=== PATIENT | female | born 1995 | race Caucasian/White ===

== ENCOUNTER → 2018-02-18 13:33 | Outpatient (CLI) | payer OTHER, SELFPAY | PROVIDERS: PCP Family Medicine; Visit Provider Physician Assistant | DX: J02.9 Acute pharyngitis, unspecified (principal) | CPT/HCPCS: 87070; 87077; 87147 ==

== ENCOUNTER → 2020-10-27 08:19 | Outpatient (CLI) | payer OTHER, SELFPAY ==
[2020-10-27] MEDS: COVID-19 VACC, Ad26(JANSSEN)/PF 0.5 ML IM (08:22)
== END ==
PROVIDERS: PCP Registered Nurse Diabetes Educator; Visit Provider Internal Medicine
DX: Z23 Encounter for immunization (principal)
CPT/HCPCS: 0031A; 91303

== ENCOUNTER → 2022-10-30 13:40 | Outpatient (CLI) | payer OTHER, SELFPAY ==
[2022-10-30 13:56] LABS: Hematocrit 37.5 % (36-46); Hemoglobin 12.6 g/dL (12.0-16.0); Mean Corpuscular HGB Conc 33.5 % (30-36); Mean Corpuscular Hemoglobin 26.6 PG (26-34); Mean Corpuscular Volume 79.2 fL (80-100); Platelet Count 349 X10^3/uL (150-400); Red Blood Cell Count 4.73 X10^6/uL (4.0-5.2); Red Cell Distribution Width 13.5 % (11.6-14.8); White Blood Cell Count 12.3 X10^3/uL (4.5-11.0)
[2022-10-30 14:42] LABS: TSH w/ Reflex to FT4 1.26 uIU/mL (0.47-4.68)
== END ==
PROVIDERS: PCP Registered Nurse Diabetes Educator; Referring Provider Registered Nurse Diabetes Educator; Visit Provider Registered Nurse Diabetes Educator
DX: F32.A Depression, unspecified (principal); F41.9 Anxiety disorder, unspecified; R53.83 Other fatigue
CPT/HCPCS: 36415; 84443; 85027

== ENCOUNTER → 2023-11-10 12:38 | Outpatient (CLI) | payer OTHER, SELFPAY ==
[2023-11-10 14:06] LABS: Hematocrit 37.9 % (36-46); Hemoglobin 12.6 g/dL (12.0-16.0); Mean Corpuscular HGB Conc 33.2 % (30-36); Mean Corpuscular Hemoglobin 26.3 PG (26-34); Mean Corpuscular Volume 79.3 fL (80-100); Platelet Count 340 X10^3/uL (150-400); Red Blood Cell Count 4.78 X10^6/uL (4.0-5.2); Red Cell Distribution Width 13.8 % (11.6-14.8); White Blood Cell Count 9.6 X10^3/uL (4.5-11.0)
[2023-11-10 14:26] LABS: Alanine Aminotransferase 15 IU/L (<35); Albumin 4.5 g/dL (3.5-5.0); Albumin Globulin Ratio 1.6 (1.0-2.8); Alkaline Phosphatase 104 U/L (38-126); Aspartate Aminotransferase 18 IU/L (14-36); BUN Creatinine Ratio 16.3 (6-22); Bilirubin Total 0.5 mg/dL (0.2-1.3); Blood Urea Nitrogen 8 mg/dL (7-17); Calcium 9.3 mg/dL (8.4-10.2); Carbon Dioxide 22 mmol/L (22-32); Chloride 107 mmol/L (98-107); Cholesterol 218 mg/dL (140-199); Estimated Glomerular Filt Rate > 60 mL/min (>60); Globulin 2.8 g/dL (1.7-4.1); Glucose 77 mg/dL (70-100); HDL Cholesterol 76 mg/dL (40-60); HEMOLYSIS < 15 (0-50); LDL Cholesterol Calculated 113 mg/dL (<100); Sodium 139 mmol/L (137-145); Total Protein 7.3 g/dL (6.3-8.2); Triglycerides 143 mg/dL (35-150)
[2023-11-10 14:56] LABS: TSH w/ Reflex to FT4 2.04 uIU/mL (0.47-4.68)
== END ==
PROVIDERS: PCP Registered Nurse Diabetes Educator; Referring Provider Registered Nurse Diabetes Educator; Visit Provider Registered Nurse Diabetes Educator
DX: Z00.00 Encounter for general adult medical examination without abnormal findings (principal)
CPT/HCPCS: 36415; 80053; 80061; 84443; 85027

== ENCOUNTER → 2024-09-22 11:29 | Outpatient (CLI) | payer OTHER, SELFPAY ==
[2024-09-24 12:12] LABS: HSV 1 DNA Negative (Negative); HSV 2 DNA Negative (Negative)
== END ==
PROVIDERS: PCP Registered Nurse Diabetes Educator; Visit Provider Student in an Organized Health Care Education/Training Program
DX: S00.521A Blister (nonthermal) of lip, initial encounter (principal)
CPT/HCPCS: 87529

== ENCOUNTER → 2024-10-02 09:20 | Outpatient (CLI) | payer OTHER, SELFPAY | PROVIDERS: PCP Registered Nurse Diabetes Educator; Visit Provider Nurse Practitioner Family | DX: K13.0 Diseases of lips (principal) | CPT/HCPCS: 87070; 87077; 87147; 87186; 87205 ==

== ENCOUNTER 2024-12-15 09:41 | Emergency (ER) | payer OTHER, SELFPAY ==
[2024-12-15] VITALS (12 sets, daily range): BP systolic 118–161; BP diastolic 72–99; PULSE 83–109; RESP 13–23; TEMP 36.9; O2SAT 98–100; BMI 33.7
--- NOTE | 2024-12-15 09:55 | DI.RAD.S_ITS ---
PROCEDURE: XR CHEST 1V INDICATIONS: Chest Pain TECHNIQUE: One view of the chest was acquired. COMPARISON: None. FINDINGS: Surgical changes and devices: None. Lungs and pleura: Lungs are clear. No pleural effusions or pneumothorax. Mediastinum: Mediastinal contours appear normal. Heart size is normal. Bones and chest wall: No suspicious bony lesions. Overlying soft tissues appear unremarkable. IMPRESSION: No acute cardiopulmonary abnormality is seen. Dictated by: Devendra Suazo M.D. on 12/15/2024 at 10:31 Approved by: Devendra Suazo M.D. on 12/15/2024 at 10:31
--- NOTE | 2024-12-15 09:55 | EKG_ITS ---
[address] [address] [address] [address] Test Date: 2024-12-15 Pat Name: Pasquale Cintron Department: Room: Gender: Female [employer] Apprentice: RONNIE : 1995 Requested By: Order Number: [id number] Reading MD: Gavin Pierre Measurements Intervals [place] Rate: 98 P: 50 OK: 118 QRS: 18 QRSD: 84 T: 18 QT: 358 QTc: 457 Interpretive Statements Normal sinus rhythm Electronically Signed On 12-15-2024 17:48:16 PDT by Gavin Pierre
[2024-12-15 10:21] LABS: Add Manual Diff / Slide Review NO; Basophils Absolute Auto 0 /uL (0-100); Basophils Percent Auto 0.4 % (0-2); Eosinophils Absolute Auto 100 /uL (0-450); Eosinophils Percent Auto 1.1 % (2-4); Hematocrit 38.6 % (36-46); Hemoglobin 13.4 g/dL (12.0-16.0); Lymphocytes Absolute Auto 1900 /uL (1100-4500); Lymphocytes Percent Auto 25.7 % (25-40); Mean Corpuscular HGB Conc 34.6 % (30-36); Mean Corpuscular Hemoglobin 26.8 PG (26-34); Mean Corpuscular Volume 77.3 fL (80-100); Monocytes Absolute Auto 500 /uL (0-900); Monocytes Percent Auto 6.2 % (3-14); Neutrophils Absolute Auto 5000 /uL (1500-7000); Neutrophils Percent Auto 66.6 % (50-75); Platelet Count 401 X10^3/uL (150-400); Red Blood Cell Count 4.99 X10^6/uL (4.0-5.2); White Blood Cell Count 7.6 X10^3/uL (4.5-11.0)
[2024-12-15 10:28] LABS: INR 1.1 (0.9-1.3); Prothrombin Time 12.7 SECONDS (9.4-12.5)
[2024-12-15 10:30] LABS: PTT Partial Thromboplastin Tim 32 SECONDS (25.1-36.5)
[2024-12-15] MEDS: SODIUM CHLORIDE 0.9% 1,000 ML 1000 ML IV (10:31)
--- NOTE | 2024-12-15 10:33 | ED.ARRPALP ---
HPI - Arrhythmia/Palpitations General Chief Complaint: Arrhythmia/Palpitations Stated Complaint: Rapid heart rate Time Seen by Provider: 12/15/24 10:16 Source: patient Mode of arrival: Ambulatory History of Present Illness HPI narrative: Patient here with partner. Complains of palpitations waxing and waning elevated heart rate between 75 and 120 mostly with positional changes and standing up. She was sick with a flu-like symptoms about a week ago. She thinks she has been keeping hydrated. Denies . Feeling slightly lightheaded with standing. No prior history of heart attack strokes or diabetes. No prior history of arrhythmia. EKG at this time is reassuring, normal EKG rate 98 normal sinus rhythm. Denies any thyroid disease. No new medications. Related Data Home Medications ?Medication ?Instructions ?Recorded ?Confirmed norethindrone 1 mg-ethinyl 1 tab PO 08/21/22 12/22/24 estradiol 20 mcg (21)-iron 75 mg (7) tablet (08/09 (28)) fexofenadine 180 mg tablet 180 mg PO DAILY 10/07/22 12/22/24 Previous Rx's ?Medication ?Instructions ?Recorded escitalopram oxalate 10 mg tablet 15 mg (1.5 x 10 mg) PO DAILY #135 11/01/24 (Lexapro) tabs Allergies Allergy/AdvReac Type Severity Reaction Status Date / Time No Known Drug Allergies Allergy Verified 12/22/24 14:46 Review of Systems Review of Systems Narrative: GENERAL: Negative chills, fatigue, malaise, fever, sweats. HEENT: Negative sinus pain, ear pain, sore throat RESPIRATORY: Negative dyspnea, cough CARDIOVASCULAR: Negative chest pain, positive palpitations GASTROINTESTINAL: Negative vomiting, nausea, abdominal pain : Negative dysuria, frequency, hematuria MUSCULOSKELETAL: Negative muscle or bony pain SKIN: Negative rash, skin lesions NEUROLOGIC: Negative weakness, numbness ROS Unobtainable: All systems reviewed & are unremarkable except as noted in HPI and below Patient History Medical History Dyslipidemia Anxiety Allergic rhinitis Family History Grandfather Age: 75 Diabetes mellitus High cholesterol Mental health problem Grandfather Age: 76 Hypertension Grandmother Age: 76 Hypertension High cholesterol Sister Age: 20 Cat allergies Social History Smoking Status: Never smoker Smoking Status: Unknown if ever smoked Exam Narrative Exam Narrative: GENERAL: in no distress, not toxic not dyspneic HEAD: Normocephalic. EYES: Pupils equal round ENT: Mucous membranes moist. NECK: Trachea midline. No thyromegaly CARDIOVASCULAR: Regular rate and rhythm, no murmur, no friction rub RESPIRATORY: Clear to auscultation. Breath sounds equal bilaterally. No wheezes, rales, or rhonchi. GASTROINTESTINAL: Abdomen soft, non-tender EXTREMITIES: No gross deformities. BACK: No flank tenderness. NEURO: AOx4. Clear speech SKIN: Warm and dry PSYCH: Not anxious, is cooperative Initial Vital Signs Initial Vital Signs: Vital Signs Temperature 98.4 F 12/15/24 09:49 Pulse Rate 107 H 12/15/24 09:49 Respiratory Rate 17 12/15/24 09:49 Blood Pressure 161/99 H 12/15/24 09:49 Pulse Oximetry 100 12/15/24 09:49 Oxygen Delivery Method Room Air 12/15/24 09:49 Scores HEART Score Heart Score history: Slightly Suspicious Heart Score EKG: Normal Heart Score Age: < 45 years old Heart Score risk factors: No known risk factors Heart Score troponin: < or = to normal limit Heart Score Total: 0 Course Orders Ordered: Discontinued Medications Sodium Chloride (Normal Saline 0.9%) 1,000 mls @ 1,000 mls/hr IV BOLUS ONE Stop: 12/15/24 11:16 Last Infusion: 12/15/24 12:06 Dose: Infused Documented By: [facility] Admin: 12/15/24 10:31 Dose: 1,000 mls/hr Documented By: EUFEMIA Vital Signs Vital signs: Vital Signs - 8 hr 12/15/24 09:49 12/15/24 09:51 12/15/24 09:52 Temperature 98.4 F Pulse Rate 107 H Pulse Rate [Orthostatic Lying] Pulse Rate [Orthostatic Sitting] Pulse Rate [Orthostatic Standing] Respiratory Rate 17 Blood Pressure 161/99 H 161/99 H Blood Pressure [Orthostatic Lying] Blood Pressure [Orthostatic Sitting] Blood Pressure [Orthostatic Standing] Pulse Oximetry 100 99 Oxygen Delivery Method Room Air 12/15/24 09:52 12/15/24 10:00 12/15/24 10:00 Temperature Pulse Rate 109 H 88 Pulse Rate [Orthostatic Lying] Pulse Rate [Orthostatic Sitting] Pulse Rate [Orthostatic Standing] Respiratory Rate 13 Blood Pressure 139/83 Blood Pressure [Orthostatic Lying] Blood Pressure [Orthostatic Sitting] Blood Pressure [Orthostatic Standing] Pulse Oximetry 100 100 Oxygen Delivery Method 12/15/24 10:30 12/15/24 10:30 12/15/24 10:33 Temperature Pulse Rate 89 89 Pulse Rate [Orthostatic Lying] Pulse Rate [Orthostatic Sitting] Pulse Rate [Orthostatic Standing] Respiratory Rate 17 19 Blood Pressure 118/88 Blood Pressure [Orthostatic Lying] Blood Pressure [Orthostatic Sitting] Blood Pressure [Orthostatic Standing] Pulse Oximetry 100 100 Oxygen Delivery Method 12/15/24 10:33 12/15/24 10:35 12/15/24 10:35 Temperature Pulse Rate 86 Pulse Rate [Orthostatic Lying] Pulse Rate [Orthostatic Sitting] Pulse Rate [Orthostatic Standing] Respiratory Rate 16 Blood Pressure 118/72 134/88 Blood Pressure [Orthostatic Lying] Blood Pressure [Orthostatic Sitting] Blood Pressure [Orthostatic Standing] Pulse Oximetry 99 Oxygen Delivery Method 12/15/24 10:37 12/15/24 10:37 12/15/24 10:39 Temperature Pulse Rate 96 H Pulse Rate [Orthostatic Lying] 88 Pulse Rate [Orthostatic Sitting] 83 Pulse Rate [Orthostatic Standing] 95 H Respiratory Rate 23 Blood Pressure 133/82 Blood Pressure [Orthostatic Lying] 118/72 Blood Pressure [Orthostatic Sitting] 134/88 Blood Pressure [Orthostatic Standing] 133/82 Pulse Oximetry 98 Oxygen Delivery Method 12/15/24 11:00 12/15/24 11:00 Temperature Pulse Rate 95 H Pulse Rate [Orthostatic Lying] Pulse Rate [Orthostatic Sitting] Pulse Rate [Orthostatic Standing] Respiratory Rate 18 Blood Pressure 149/94 H Blood Pressure [Orthostatic Lying] Blood Pressure [Orthostatic Sitting] Blood Pressure [Orthostatic Standing] Pulse Oximetry 100 Oxygen Delivery Method MDM - Arrhythmia/Palpitations Lab Data 12/15/24 10:05 12/15/24 10:05 Labs: Lab Results 12/15/24 12/15/24 Range/Units 10:05 11:15 WBC 7.6 (4.5-11.0) X10^3/uL RBC 4.99 (4.0-5.2) X10^6/uL Hgb 13.4 (12.0-16.0) g/dL Hct 38.6 (36-46) % MCV 77.3 L (80-100) fL MCH 26.8 (26-34) PG MCHC 34.6 (30-36) % RDW 14.0 (11.6-14.8) % Plt Count 401 H (150-400) X10^3/uL Neut % (Auto) 66.6 (50-75) % Lymph % (Auto) 25.7 (25-40) % [place] % (Auto) 6.2 (3-14) % Eos % (Auto) 1.1 L (2-4) % Baso % (Auto) 0.4 (0-2) % Neut # (Auto) 5000 (6574-3564) /uL Lymph # (Auto) 1900 (8389-8926) /uL [place] # (Auto) 500 (0-900) /uL Eos # (Auto) 100 (0-450) /uL Baso # (Auto) 0 (0-100) /uL PT 12.7 H (9.4-12.5) SECONDS INR 1.1 (0.9-1.3) APTT 32 (25.1-36.5) SECONDS D-Dimer < 215 (<500) ng/ml Sodium 138 (137-145) mmol/L Potassium 3.9 (3.4-5.1) mmol/L Chloride 108 H (98-107) mmol/L Carbon Dioxide 16 L (22-32) mmol/L BUN 8 (7-17) mg/dL Creatinine 0.59 (0.52-1.04) mg/dL Estimated GFR > 60 (>60) mL/min BUN/Creatinine Ratio 13.6 (6-22) Glucose 101 H (70-99) mg/dL Calcium 9.6 (8.4-10.2) mg/dL Magnesium 1.8 (1.6-2.3) mg/dL Total Bilirubin 1.0 (0.2-1.3) mg/dL AST 20 (14-36) IU/L ALT 16 (<35) IU/L Alkaline Phosphatase 88 (38-126) U/L Total Creatine Kinase 55 (30-135) U/L Troponin I < 0.012 (0.01-0.034) ng/mL NT-Pro-B Natriuret Pep < 20 (<125) pg/mL Total Protein 8.0 (6.3-8.2) g/dL Albumin 4.7 (3.5-5.0) g/dL Globulin 3.3 (1.7-4.1) g/dL Albumin/Globulin Ratio 1.4 (1.0-2.8) Lipase 57 (23-300) U/L TSH 1.73 (0.47-4.68) uIU/mL Serum , Qual Negative (Negative) Urine RBC None seen (0-5/HPF) Urine WBC None seen (0-5/HPF) Ur Squamous Epith Cells 1-5 /hpf (0-5/HPF) Urine Bacteria None seen (None) Ur Culture Indicated? Cult not indicated Vol Urine Centrifuged 10ml (spun) Urine Dip Bedside Urine Glucose Negative Bedside Urine Bilirubin - Negative Bedside Urine Ketone + 15 Urine Specific [place] 1.010 Bedside Urine Occult Blood - Negative Bedside Urine pH 6.0 Bedside Urine Protein - Negative Bedside Urine Urobilinogen - Negative Bedside Urine Nitrite - Negative Bedside Urine Leukocytes - Negative Esterase Imaging Data Chest x-ray: Radiologist's Impresson: [place] [address] XRay Report Signed Patient: Pasquale Cintron MR#: [id number] : 1995 Acct:[id number] Age/Sex: 29 / F Date of Service: 12/15/24 Loc: ED Accession Number: [id number] Procedure: XR chest 1V Ordering Provider: Noel Andre MD PROCEDURE: XR CHEST 1V INDICATIONS: Chest Pain TECHNIQUE: One view of the chest was acquired. COMPARISON: None. FINDINGS: Surgical changes and devices: None. Lungs and pleura: Lungs are clear. No pleural effusions or pneumothorax. Mediastinum: Mediastinal contours appear normal. Heart size is normal. Bones and chest wall: No suspicious bony lesions. Overlying soft tissues appear unremarkable. IMPRESSION: No acute cardiopulmonary abnormality is seen. Dictated by: Devendra Suazo M.D. on 12/15/2024 at 10:31 Approved by: Devendra Suazo M.D. on 12/15/2024 at 10:31 [facility] Narrative Medical decision making narrative: Patient here with partner. Complains of palpitations waxing and waning elevated heart rate between 75 and 120 mostly with positional changes and standing up. She was sick with a flu-like symptoms about a week ago. She thinks she has been keeping hydrated. Denies . Feeling slightly lightheaded with standing. No prior history of heart attack strokes or diabetes. No prior history of arrhythmia. EKG at this time is reassuring, normal EKG rate 98 normal sinus rhythm. Denies any thyroid disease. No new medications After history and exam, EKG CBC CMP chest x-ray orthostatics normal saline TSH urinalysis test MDM Medical records reviewed: Differential considered: Includes but not limited to dehydration anemia SVT atrial fibrillation atrial flutter pots syndrome Lab Test results independently reviewed as above. Pertinent findings: WBC 7.6 hemoglobin 13.4 D-dimer less than 215 sodium 138 potassium 3.9 BUN 8 creatinine 0.59 GFR greater than 60 glucose 101 calcium 9.6 magnesium 1.8 troponin less than 0.012 BNP less than 20 negative TSH 1.73 Independently reviewed EKG normal sinus rhythm rate 98 [time] EKG is normal sinus rhythm rate [ ] and free of any signs of ischemia or ectopy. No ST segmental elevation or depression. No T wave inversions Imaging studies independently reviewed: Chest x-ray no acute finding Consultations: None indicated at this time. Re-evaluations: 11:57 a.m.. Mother at bedside. Reviewed results with patient. She is feeling much better after IV fluids. Reviewed with them it could be pots syndrome. However this can be worked up outpatient with family doctor and cardiology referral from family doctor. She does have a primary care. No new medications are indicated. Return precautions reviewed with them. Mother states that she herself has history of chronic tachycardia. No primary family history of coronary artery disease. Patient has low heart score Discussion: Appropriate for discharge home. Exam is reassuring. Return precautions reviewed with patient. Not toxic at discharge. Patient feeling much better after IV fluids. Patient has low heart score. Orthostatics were reassuring. Diagnosis: Tachycardia Discharge Plan Departure Patient Disposition: Home Clinical Impression: Sinus tachycardia Instructions: DI for Arrhythmias Activity Restrictions/Additional Instructions: Your exam and laboratory studies and imaging studies are reassuring today. Your heart rate could be related to hydration status and it is recommended you keep well hydrated. Please do see your family doctor within a week for re-evaluation and referral for cardiology services, to evaluate for pots syndrome. No new medications or indicated at this time. Return if worse if any questions or concerns Prescriptions: No Action norethindrone-e.estradiol-iron [Junel FE 08/09 (28)] 1 mg-20 mcg (21)/75 mg (7) tablet 1 tab PO fexofenadine 180 mg tablet 180 mg PO DAILY escitalopram oxalate [Lexapro] 10 mg tablet 15 mg PO DAILY Qty: 135 3RF Referrals: Caleb Ramos ARNP [Primary Care Provider, Medical] Stand Alone Forms: Patient Portal/API/Survey
[2024-12-15 10:34] LABS: Alanine Aminotransferase 16 IU/L (<35); Albumin 4.7 g/dL (3.5-5.0); Albumin Globulin Ratio 1.4 (1.0-2.8); Alkaline Phosphatase 88 U/L (38-126); Aspartate Aminotransferase 20 IU/L (14-36); BUN Creatinine Ratio 13.6 (6-22); Blood Urea Nitrogen 8 mg/dL (7-17); Calcium 9.6 mg/dL (8.4-10.2); Carbon Dioxide 16 mmol/L (22-32); Chloride 108 mmol/L (98-107); Creatine Kinase 55 U/L (30-135); Estimated Glomerular Filt Rate > 60 mL/min (>60); Globulin 3.3 g/dL (1.7-4.1); Glucose 101 mg/dL (70-99); HEMOLYSIS < 15 (0-50); Lipase 57 U/L (23-300); Magnesium 1.8 mg/dL (1.6-2.3); Potassium 3.9 mmol/L (3.4-5.1); Sodium 138 mmol/L (137-145)
[2024-12-15 10:43] LABS: Pregnancy Test Serum,Qual Negative (Negative)
[2024-12-15 10:45] LABS: NT-proBNP (BNP-Adult 18+) < 20 pg/mL (<125); Troponin I < 0.012 ng/mL (0.01-0.034)
[2024-12-15 11:05] LABS: Thyroid Stimulating Hormone 1.73 uIU/mL (0.47-4.68)
[2024-12-15 11:42] LABS: D Dimer < 215 ng/ml (<500)
[2024-12-15 11:56] LABS: Bacteria Urine None Seen; Culture Indicated Urine Cult Not Indicated; RBC Urine None Seen (0-5/HPF); Squamous Epithelial Cell Urine 1-5 /HPF (0-5/HPF); Urine Volume 10mL (spun); WBC Urine None Seen (0-5/HPF)
== END 2024-12-15 12:08 | disposition home or self-care (01) ==
PROVIDERS: Emergency Provider Emergency Medicine; PCP Registered Nurse Diabetes Educator
DX: R00.0 Tachycardia, unspecified (principal)
CPT/HCPCS: 36415; 71045; 80053; 81003; 81015; 82550; 83690; 83735; 83880; 84443; 84484; 84703; 85025; 85379; 85610; 85730; 87086; 93005; 96360; 96361; 99284